=== PATIENT | male | born 1950 | race Caucasian/White ===

== ENCOUNTER 2020-04-21 20:14 | Emergency (ER) | payer MEDICARE, OTHER ==
[~2020-04-21 20:14] MED LIST: LASIX20 MG PO
[2020-04-21 21:18] LABS: EOSINOPHIL 1.3 % (0-7); HCT 30.7 % (42.0-52.0); HGB 9.7 g/dl (13.2-18.0); LYMPHOCYTE 29.5 % (15-48); MCH 31.3 pg (25.0-31.0); MCHC 31.6 g/dL (32.0-36.0); MONOCYTE 8.7 % (0-12); MPV 9.3 fL (6.0-9.5); NEUTROPHIL 51.9 % (41-80); NRBC 0; PLT 174 K/uL (150-400); RDW 14.2 % (11.5-14.0)
[2020-04-21 21:19] LABS: WBC 3.9 K/uL (4.0-10.5)
[2020-04-21 21:28] LABS: ALBUMIN 3.9 g/dL (3.4-5.0); BILIRUBIN - TOTAL 0.2 mg/dL (0.2-1.0); BUN/CREAT RATIO (CALC) 32.6 RATIO; CREATININE 1.38 mg/dL (0.67-1.17); GLOBULIN (CALCULATION) 3.9 g/dL; POTASSIUM 6.4 mmol/L (3.5-5.1); TOTAL PROTEIN 7.8 g/dL (6.4-8.2)
[2020-04-22 00:23] LABS: BUN/CREAT RATIO (CALC) 35.3 RATIO; CREATININE 1.33 mg/dL (0.67-1.17); POTASSIUM 5.7 mmol/L (3.5-5.1)
== END 2020-04-22 01:10 | disposition home or self-care (01) ==
LOC: FER 20:14
PROVIDERS: Emergency Medicine
DX: E87.5 Hyperkalemia (principal); I10 Essential (primary) hypertension; Z94.4 Liver transplant status
CPT/HCPCS: 36415; 80048; 80053; 85025; J0610; J7030

== ENCOUNTER 2020-05-16 16:05 | Emergency (ER) | payer MEDICARE, OTHER ==
[2020-05-16 18:05] LABS: BASOPHIL 1.2 % (0-2); EOSINOPHIL 1.4 % (0-7); HCT 30.6 % (42.0-52.0); HGB 9.8 g/dl (13.2-18.0); LYMPHOCYTE 31.9 % (15-48); MCH 30.9 pg (25.0-31.0); MCV 96.5 fL (78.0-100.0); MONOCYTE 10.4 % (0-12); MPV 9.7 fL (6.0-9.5); NEUTROPHIL 53.9 % (41-80); NRBC 0; PLT 151 K/uL (150-400); RBC 3.17 M/uL (4.70-6.00); RDW 12.9 % (11.5-14.0); WBC 4.3 K/uL (4.0-10.5)
[2020-05-16 18:33] LABS: ALBUMIN 3.7 g/dL (3.4-5.0); BILIRUBIN - TOTAL 0.3 mg/dL (0.2-1.0); BUN/CREAT RATIO (CALC) 18.7 RATIO; CREATININE 1.71 mg/dL (0.67-1.17); GLOBULIN (CALCULATION) 3.4 g/dL; POTASSIUM 4.9 mmol/L (3.5-5.1); TOTAL PROTEIN 7.1 g/dL (6.4-8.2)
== END 2020-05-16 19:19 | disposition home or self-care (01) ==
LOC: FER 16:05
PROVIDERS: Nurse Practitioner Family
DX: M25.50 Pain in unspecified joint (principal); I10 Essential (primary) hypertension
CPT/HCPCS: 36415; 80053; 85025; 93005